=== PATIENT | male | born 1985 ===

== ENCOUNTER → 2024-06-11 | Outpatient (REF) | payer OTHER ==
[2024-06-11 10:37] LABS: SEMEN VOLUME 0.9 ml (2.0-5.0)
[2024-06-11 10:40] LABS: SEMEN APPEARANCE OPAQUE (OPAQUE); SEMEN VISCOSITY LIQUID (LIQUID); SEMEN pH 8.5 (7.0-8.0); WBC CONCENTRATION <=1 M/ml (<=1 M/ml)
[2024-06-12 14:10] LABS: SPERM CONCENTRATION 173.1 M/ml (>=15.0)
== END ==
LOC: M LAB REF 10:32
PROVIDERS: ATTEND Obstetrics & Gynecology
DX: N46.8 Other male infertility (principal)